=== PATIENT | female | born 1935 | race Caucasian/White ===

== ENCOUNTER 2020-06-03 10:15 | Inpatient (IN) | payer MEDICARE, OTHER ==
[~2020-06-03] VITALS: Ht 165.1 cm; Wt 95.8 kg
--- NOTE | 2020-06-03 10:21 | NUR ---
Patient's grandad is point of contact Geraldo Sawant [phone].
[2020-06-03] MEDS ORDERED: SODIUM CHLORIDE 0.9% 500ML 500 ML IV ONE (10:30)
[2020-06-03] MEDS ORDERED: DEXAMETHASONE SOD PHOS 10 MG/1 ML VIAL IV NR (10:30)
--- NOTE | 2020-06-03 10:55 | NUR ---
ARRIVED ON NRB 15 LPM SATS 100-99%. TACHYPNENIC IN MODERATE DISTRESS. AWAKE/ALERT. AAOX1 NAME ONLY, ANSWERS WRONG TO ALL OTHER QUESTIONS. CHANGED TO NC AT 6 LPM AND SATS 89-90%; MD JONES STATES ORDER FOR VAPO THERM AND NUÑEZ. RBVO. CALLED RESP FOR VAPO
[2020-06-03 11:10] LABS: BASOPHILS % 0.3 % (0.0-1.0); EOSINOPHILS % 0.2 % (0.0-6.0); HEMATOCRIT 36.3 % (34.2-44.1); HEMOGLOBIN 12.4 g/dL (12.0-16.0); LYMPHOCYTES # (AUTO) 1.3 (1.0-3.2); LYMPHOCYTES % 9.4 % (18.0-39.1); MEAN CORPUSCULAR HEMOGLOBIN 31.5 pg (28-32); MEAN CORPUSCULAR HGB CONC 34.2 g/dL (31-35); MEAN CORPUSCULAR VOLUME 92.1 fL (81-99); MONOCYTES # (AUTO) 2.4 (0.2-0.8); MONOCYTES % 17.6 % (4.4-11.3); NEUTROPHILS # (AUTO) 9.6 (2.1-6.9); NEUTROPHILS % 70.8 % (38.7-80.0); PLATELET COUNT 205 x10e3/uL (140-360); RED BLOOD COUNT 3.94 x10e6/uL (3.6-5.1); RED CELL DISTRIBUTION WIDTH 14.3 % (11.7-14.4)
[2020-06-03] MEDS ORDERED: ACETAMINOPHEN 325 MG TAB ONE (11:11)
--- NOTE | 2020-06-03 11:16 | Diagnostic Imaging Report ---
Examination: Single AP view of the chest. COMPARISON: None. INDICATION: Short of breath, hypoxia DISCUSSION: Lines/tubes: None. Lungs: Scattered groundglass and airspace opacities. Pleura: No pleural effusion or pneumothorax. Heart and mediastinum: The heart and the mediastinum are unremarkable. Bones and soft tissues: No acute bony abnormalities. IMPRESSION: 1. Scattered groundglass and airspace opacities may reflect pneumonia Signed by: Dr. Kamlesh Meza M.D. on 06/03/2020 11:12 AM
[2020-06-03 11:20] LABS: CLARITY,URINE SL CLOUDY (CLEAR); COLOR,URINE YELLOW (YELLOW); LEUKOCYTE ESTERASE ,URINE SMALL (NEGATIVE)
[2020-06-03 11:21] LABS: BILIRUBIN,URINE NEGATIVE (NEGATIVE); INR 1.05; KETONES,URINE TRACE (NEGATIVE); NITRITE,URINE POSITIVE (NEGATIVE); PROTEIN,URINE DIPSTICK 2+ (NEGATIVE); PROTHROMBIN TIME 14.4 seconds (11.9-14.5); URINE UROBILINOGEN 0.2 mg/dL (0.2 - 1)
[2020-06-03 11:22] LABS: PARTIAL THROMBOPLASTIN TIME 40.2 seconds (23.8-35.5)
[2020-06-03 11:28] LABS: WBC,URINE (MAN) 21-50 /HPF (0-5)
[2020-06-03 11:29] LABS: BACTERIA,URINE MANY /HPF; EPITHELIAL CELLS,URINE FEW /LPF; RBC,URINE 21-50 /HPF (0-5)
[2020-06-03 11:30] LABS: ALANINE AMINOTRANSFERASE 41 IU/L (0-55); ALBUMIN 2.3 g/dL (3.5-5.0); ALBUMIN/GLOBULIN RATIO 0.5 (0.8-2.0); ALKALINE PHOSPHATASE 80 IU/L (40-150); ANION GAP 12.2 mmol/L (8-16); BLOOD UREA NITROGEN 8 mg/dL (7-26); BUN/CREATININE RATIO 13 (6-25); CALCIUM 8.6 mg/dL (8.4-10.2); CARBON DIOXIDE 26 mmol/L (22-29); CHLORIDE 99 mmol/L (98-107); CREATINE KINASE 15 IU/L (29-168); CREATININE, SERUM 0.63 mg/dL (0.57-1.11); EST GLOMERULAR FILTRATION RATE > 60 ML/MIN (60-); GLUCOSE 121 mg/dL (74-118); POTASSIUM 4.2 mmol/L (3.5-5.1); SODIUM 133 mmol/L (136-145)
[2020-06-03] MEDS ORDERED: ACETAMINOPHEN 650 MG SUPP PR ONE (12:01)
[2020-06-03] MEDS: AZITHROMYCIN 500MG/NS 250 ML 250 ML IV SCH (12:01)
[2020-06-03] MEDS: CEFTRIAXONE SOD 1 GM/NS 50 ML 50 ML IV SCH (12:01)
[2020-06-03] MEDS ORDERED: ACETAMINOPHEN 650 MG SUPP PR NR (12:15)
[2020-06-03] MEDS ORDERED: IPRAT-ALBUT 0.5-3 ML (14:20)
[2020-06-03] MEDS ORDERED: ZOLPIDEM TARTRAT5 MG (14:20)
[2020-06-03] MEDS ORDERED: FUROSEMIDE20 MG (14:20)
[2020-06-03] MEDS ORDERED: ATORVASTATIN CA10 MG (14:20)
[2020-06-03] MEDS ORDERED: OXYBUTYNIN CHLO10 MG (14:20)
[2020-06-03] MEDS ORDERED: ALPRAZOLAM0.25 MG (14:20)
[2020-06-03] MEDS ORDERED: PANTOPRAZOLE SO40 MG (14:20)
[2020-06-03] MEDS ORDERED: LEVOTHYROXINE50 MCG (14:20)
[2020-06-03] MEDS ORDERED: PREDNISOLONE (14:20)
[2020-06-03] MEDS ORDERED: POTASSIUM CHLO20 ME1 (14:20)
[2020-06-03] MEDS ORDERED: GABAPENTIN600 MG (14:20)
[2020-06-03] MEDS ORDERED: PREGABALIN150 MG (14:20)
--- NOTE | 2020-06-03 15:00 | Emergency Department Note ---
History of Present Illnes History of Present Illness Chief Complaint: COVID PUI History of Present Illness This is a 85 year old female PT FROM [facility] SENT FOR SOB. SATS IN 70% RA PER EMS. PT AWAKE/ALERT. PT ARRIVED ON NRB @15 LPM SATS AT 90%. Historian: Patient Arrival Mode: Car Wood Coater Required: No Onset (how long ago): unknown Radiation: Reports non-radiation Severity: moderate Onset quality: gradual Progression: worsening Chronicity: new Context: Denies recent illness Relieving factors: none Exacerbating factors: none Past Medical/Family History Physician Review I have reviewed the patient's past medical and family history. Any updates have been documented here. Past Medical History Recent Fever: No Clinical Suspicion of Infectio: No New/Unexplained Change in Ment: No Past Medical History: Hypertension, A-Fib, Hypothyroidism, Anemia, Anxiety, GERD, Hyperlipedemia Other Medical History: DEMENTIA INSOMNIA MORBID OBESITY Social History Smoking Cessation: Never Smoker Counseling Performed: No Alcohol Use: None Any Illegal Drug Use: No Other Any Pre-Existing Lines (PICC,: No Review of Systems ROS Narrative Unable to obtain ROS: Unable to obtain due to, altered mental status (dementia) Review of Systems Constitutional: Reports no symptoms EENTM: Reports no symptoms Cardiovascular: Reports no symptoms Respiratory: Reports as per HPI Gastrointestinal: Reports no symptoms Genitourinary: Reports no symptoms Musculoskeletal: Reports no symptoms Integumentary: Reports no symptoms Neurological: Reports no symptoms Psychological: Reports no symptoms Endocrine: Reports no symptoms Hematological/Lymphatic: Reports no symptoms Physical Exam Related Data Allergies: Coded Allergies: No Known Allergies (Unverified , 06/03/20) Triage Vital Signs Vital Signs Date Time Temp Pulse Resp B/P (MAP) Pulse Ox O2 Delivery O2 Flow Rate FiO2 06/03/20 10:19 102.4 109 16 155/63 70 Room Air 06/03/20 10:22 15.0 Vital signs reviewed: Yes Physical Exam CONSTITUTIONAL Constitutional: Present ill appearing HENT HENT: Present normocephalic, Present atraumatic, Present oropharynx clear/moist, Present nose normal HENT L/R: Present left ext ear normal, Present right ext ear normal EYES Eyes: Reports PERRL, Reports conjunctivae normal NECK Neck: Present ROM normal PULMONARY Pulmonary: Present respiratory distress (tachypnea), Present other (decr bs's throughout) CARDIOVASCULAR Cardiovascular: Present regular rhythm, Present heart sounds normal, Present capillary refill normal, Present normal rate GASTROINTESTINAL Abdominal: Present soft, Present nontender, Present bowel sounds normal GENITOURINARY Genitourinary: Present exam deferred SKIN Skin: Present warm, Present dry MUSCULOSKELETAL Musculoskeletal: Present ROM normal NEUROLOGICAL Neurological: Present other (oriented to name only) PSYCHOLOGICAL Psychological: Present mood/affect normal Results Laboratory Result Diagram: 06/03/20 1040 06/03/20 1040 Laboratory Laboratory Tests Test 06/03/20 10:40 White Blood Count 13.50 x10e3/uL (4.8-10.8) Red Blood Count 3.94 x10e6/uL (3.6-5.1) Hemoglobin 12.4 g/dL (12.0-16.0) Hematocrit 36.3 % (34.2-44.1) Mean Corpuscular Volume 92.1 fL (81-99) Mean Corpuscular Hemoglobin 31.5 pg (28-32) Mean Corpuscular Hemoglobin Concent 34.2 g/dL (31-35) Red Cell Distribution Width 14.3 % (11.7-14.4) Platelet Count 205 x10e3/uL (140-360) Neutrophils (%) (Auto) 70.8 % (38.7-80.0) Lymphocytes (%) (Auto) 9.4 % (18.0-39.1) Monocytes (%) (Auto) 17.6 % (4.4-11.3) Eosinophils (%) (Auto) 0.2 % (0.0-6.0) Basophils (%) (Auto) 0.3 % (0.0-1.0) Neutrophils # (Auto) 9.6 (2.1-6.9) Lymphocytes # (Auto) 1.3 (1.0-3.2) Monocytes # (Auto) 2.4 (0.2-0.8) Eosinophils # (Auto) 0.0 (0.0-0.4) Basophils # (Auto) 0.0 (0.0-0.1) Absolute Immature Granulocyte (auto 0.23 x10e3/uL (0-0.1) Prothrombin Time 14.4 seconds (11.9-14.5) Prothromb Time International Ratio 1.05 Activated Partial Thromboplast Time 40.2 seconds (23.8-35.5) Urine Color Yellow (YELLOW) Urine Clarity Sl cloudy (CLEAR) Urine pH 5.5 (5 - 7) Urine Specific [place] >=1.030 (1.010-1.025) Urine Protein 2+ (NEGATIVE) Urine Glucose (UA) Negative (NEGATIVE) Urine Ketones Trace (NEGATIVE) Urine Blood Large (NEGATIVE) Urine Nitrite Positive (NEGATIVE) Urine Bilirubin Negative (NEGATIVE) Urine Urobilinogen 0.2 mg/dL (0.2 - 1) Urine Leukocyte Esterase Small (NEGATIVE) Urine RBC 21-50 /HPF (0-5) Urine WBC 21-50 /HPF (0-5) Urine Epithelial Cells Few /LPF (NONE) Urine Bacteria Many /HPF (NONE) Sodium Level 133 mmol/L (136-145) Potassium Level 4.2 mmol/L (3.5-5.1) Chloride Level 99 mmol/L (98-107) Carbon Dioxide Level 26 mmol/L (22-29) Anion Gap 12.2 mmol/L (8-16) Blood Urea Nitrogen 8 mg/dL (7-26) Creatinine 0.63 mg/dL (0.57-1.11) Estimat Glomerular Filtration Rate > 60 ML/MIN (60-) BUN/Creatinine Ratio 13 (6-25) Glucose Level 121 mg/dL (74-118) Lactic Acid Level 1.3 mmol/L (0.5-2.0) Calcium Level 8.6 mg/dL (8.4-10.2) Total Bilirubin 0.6 mg/dL (0.2-1.2) Aspartate Amino Transf (AST/SGOT) 43 IU/L (5-34) Alanine Aminotransferase (ALT/SGPT) 41 IU/L (0-55) Alkaline Phosphatase 80 IU/L (40-150) Creatine Kinase 15 IU/L (29-168) Creatine Kinase MB 0.50 ng/mL (0-5.0) Troponin I 0.039 ng/mL (0-0.300) B-Type Natriuretic Peptide 60.0 pg/mL (0-100) Total Protein 6.6 g/dL (6.5-8.1) Albumin 2.3 g/dL (3.5-5.0) Globulin 4.3 g/dL (2.3-3.5) Albumin/Globulin Ratio 0.5 (0.8-2.0) Lab results reviewed: Yes Imaging Imaging results reviewed: Yes Impressions Examination: Single AP view of the chest. COMPARISON: None. INDICATION: Short of breath, hypoxia DISCUSSION: Lines/tubes: None. Lungs: Scattered groundglass and airspace opacities. Pleura: No pleural effusion or pneumothorax. Heart and mediastinum: The heart and the mediastinum are unremarkable. Bones and soft tissues: No acute bony abnormalities. IMPRESSION: 1. Scattered groundglass and airspace opacities may reflect pneumonia Signed by: Dr. Kamlesh Meza M.D. on 06/03/2020 11:12 AM Procedures 12 Lead ECG Interpretation ECG Interpretation : ECG: ECG 1 Wood Coater: Interpreted by ED physician Date: Jun 03, 2020 Time: 10:35 Rhythm: sinus rhythm Ectopy: atrial premature contractions Rate: normal (97) QRS axis: left Conduction: incomplete RBBB Clinical Impression: abnormal ECG (non-specific st/tw changes) Critical Care Time Total Critical Care Time (min): 35 Critical care time exclusive o: separately billable procedures Critcal care necessary due to: respiratory failure Critcal care time spent by me: discussion w consultants, discussion w primary provider, evaluation patient response to tx, examination of patient, order/review radiographic studies, pulse oximetry, re-evaluation of patient condition Assessment & Plan Medical Decision Making MDM cbc, chem, cardiacs, ecg, cxr, pancx's, ua, covid swab - r/o pneumonia, COVID, stemi/nstemi, electrolyte abnl Reassessment Reassessment o2 sat on RA was 70, febrile - now on Vapotherm - admit. Given Rocephin/Azithro/Decadron Assessment & Plan Final Impression: (1) Pneumonia due to COVID-19 virus Depart Disposition: ADMITTED Last Vital Signs Date Time Temp Pulse Resp B/P (MAP) Pulse Ox O2 Delivery O2 Flow Rate FiO2 06/03/20 13:51 98.4 88 32 136/67 97 06/03/20 11:19 30.0 06/03/20 10:52 Room Air Home Meds Reported Medications Gabapentin (GABAPENTIN) 600 Mg Tablet 06/03/20 Oxybutynin Chloride (OXYBUTYNIN CHLORIDE ER) 10 Mg Tab.er.24 06/03/20 Potassium Chloride (POTASSIUM CHLORIDE) 20 Meq Tab.er.prt 06/03/20 Atorvastatin Calcium (ATORVASTATIN CALCIUM) 10 Mg Tablet 06/03/20 Levothyroxine Sodium (LEVOTHYROXINE SODIUM) 50 Mcg Tablet 06/03/20 [Prednisolone] No Conflict Check 06/03/20 Alprazolam (ALPRAZOLAM) 0.25 Mg Tablet 06/03/20 Pantoprazole Sodium* (PROTONIX) 40 Mg Tablet. 06/03/20 Ipratropium/Albuterol Sulfate (IPRAT-ALBUT 0.5-3(2.5) MG/3 ML) 3 Ml Ampul.neb 06/03/20 Furosemide (FUROSEMIDE) 20 Mg Tablet 06/03/20 Pregabalin (Pregabalin) 150 Mg Capsule 06/03/20 Zolpidem Tartrate (ZOLPIDEM TARTRATE) 5 Mg Tablet 06/03/20 Medications in the ED Sodium Chloride 500 ml @ 0 mls/hr Q0M ONCE IV Last administered on 06/03/20at 12:01; Admin Dose 500 MLS/HR; Start 06/03/20 at 10:30; Stop 06/03/20 at 10:33; Status DC Ceftriaxone Sodium 50 ml @ 100 mls/hr Q24H IV Last administered on 06/03/20at 12:01; Admin Dose 100 MLS/HR; Start 06/03/20 at 10:30; Stop 06/10/20 at 10:29 Azithromycin 250 ml @ 200 mls/hr DAILY IV Last administered on 06/03/20at 12:01; Admin Dose 200 MLS/HR; Start 06/03/20 at 10:30; Stop 06/10/20 at 10:29 Dexamethasone Sodium Phosphate 6 mg ONCE IV ; Start 06/03/20 at 10:30; Stop 06/03/20 at 11:59; Status DC Acetaminophen 975 mg STK-MED ONCE .ROUTE ; Start 06/03/20 at 11:11; Stop 06/03/20 at 11:05; Status DC Acetaminophen 650 mg STK-MED ONCE KS ; Start 06/03/20 at 12:01; Stop 06/03/20 at 11:55; Status DC Acetaminophen 650 mg ONCE KS ; Start 06/03/20 at 12:15; Stop 06/03/20 at 13:59; Status DC KATEY JONES MD Jun 03, 2020 15:00
[2020-06-03] MEDS ORDERED: ALPRAZOLAM 0.25 MG TAB PO PRN (18:00)
[2020-06-03] MEDS ORDERED: METOPROLOL TARTRATE INJ 1 MG/ML VIAL IV PRN (18:00)
[2020-06-03] MEDS ORDERED: POLYETHYLENE GLYCOL 3350 17 GM PACK PO PRN (18:00)
[2020-06-03] MEDS ORDERED: ACETAMINOPHEN 325 MG TAB PO PRN (18:00)
[2020-06-03] MEDS ORDERED: ALBUTEROL/IPRATROPIUM 3 ML NEB NEB SCH ×2 (18:00→19:00)
[2020-06-03] MEDS ORDERED: ONDANSETRON HCL INJ 2MG/ML 2ML 2 MG/ML VIAL IV PRN (18:00)
[2020-06-03 18:08] VITALS: BP 147/77
[2020-06-03 18:21] VITALS: BP 147/74
[2020-06-03 18:26] VITALS: BP 147/74
--- NOTE | 2020-06-03 19:06 | NUR ---
RECEIVED REPORT PATIENT IN ROOM DURING SHIFT CHANGE, RESTING COMFORTABLY NO DISTRESS NOTED, SKIN WARM DRY, DROPLET PRECAUTIONS IN PLACE, BED ALARM IN PLACE, Q2T, BED IN LOWEST POSITION, WILL CONTINUE TO MONITOR
[2020-06-03 20:00] VITALS: BP 137/78
--- NOTE | 2020-06-03 20:15 | NUR ---
MD smith talked with the son about DNR status of patient, update by family on pt history
--- NOTE | 2020-06-03 20:56 | Consultation ---
DATE OF CONSULTATION: Pulmonary Critical Care Consultation CHIEF COMPLAINT: Cough, fever, and confusion. HISTORY OF PRESENT ILLNESS: The patient is an 85-year-old woman. She has been staying at the [facility] for about 8 or 9 months. She has some intermittent confusion according to the family. She has some concern new onset of congestion and dyspnea. She has had some fevers. Her chest x-ray in the emergency department showed bilateral infiltrates and her COVID test was positive. PAST MEDICAL HISTORY: 1. Hypothyroidism. 2. Organic brain syndrome. 3. Chronic pain requiring gabapentin. 4. Gastroesophageal reflux. ALLERGIES: THERE ARE NO KNOWN DRUG ALLERGIES. PAST SURGICAL HISTORY: Noncontributory. FAMILY HISTORY: Unobtainable. SOCIAL HISTORY: The patient stays in a nursing facility. She is not an active smoker or drinker. REVIEW OF SYSTEMS: The patient had some fevers at the nursing facility over the past several days. She has had increased cough and increased dyspnea. She is not complaining of any abdominal pain. She has no nausea or vomiting. She has no leg edema. PHYSICAL EXAMINATION: VITAL SIGNS: Stable. The blood pressure is 147/74 and saturation is 95% on a high flow oxygen that is set at 15 L. Her pulse is 90. HEENT: Shows no facial swelling or erythema. CARDIAC: Reveals regular rate and rhythm with normal S1 and S2. LUNGS: Auscultation of lungs reveals rhonchorous breath sounds bilaterally. There is no wheezing. ABDOMEN: Soft and nontender. There is no rebound or guarding. EXTREMITIES: Shows no leg edema or calf tenderness. There is no cyanosis or clubbing. SKIN: Shows no rashes. NEUROLOGICAL: Shows confusion. LABORATORY DATA: White blood cell count is 13.5 and the hemoglobin is 12.4. The platelet count is 205. The BUN to creatinine ratio is 8 to 0.63 and the sodium is 133. Albumin is 2.3. RADIOGRAPHIC DATA: Chest x-ray shows ground-glass opacities. IMPRESSION: 1. Viral pneumonia and COVID-19 infection. 2. Organic brain syndrome. 3. Gastroesophageal reflux. PLAN: 1. Zithromax and Rocephin. 2. Dexamethasone. 3. Lovenox. 4. Continue prior home medications. 5. Oxygen. 6. The patient apparently had a DNR in place at the detention and has a DNR band on the wrist, but the family is uncertain as to where it came from. They feel she is probably not DNR. MD SAHARA Cross/SEN /[id number]
[2020-06-03] MEDS ORDERED: ZOLPIDEM TARTRATE 5 MG TAB PO PRN (21:00)
[2020-06-03] MEDS ORDERED: DEXAMETHASONE SOD PHOS INJ 4 MG/ML VIAL IV SCH (21:00)
[2020-06-03] MEDS: ENOXAPARIN 30 MG/0.3 ML SYR SC SCH (21:13)
[2020-06-04] VITALS (12 sets, daily range): BP systolic 128–151; BP diastolic 62–81
[2020-06-04] MEDS: ALBUTEROL SULFATE HFA 8GM INHALATION AEROSOL INH SCH ×6 (04:00→23:11)
[2020-06-04] MEDS: DEXAMETHASONE SOD PHOS INJ 4 MG/ML VIAL IV SCH (05:39)
[2020-06-04] MEDS: LEVOTHYROXINE SODIUM 50 MCG TAB PO SCH (05:39)
[2020-06-04 06:37] LABS: CREATINE KINASE MB 1.2 ng/mL (0-5.0)
[2020-06-04 06:56] LABS: BASOPHILS % 0.1 % (0.0-1.0); HEMATOCRIT 36.4 % (34.2-44.1); HEMOGLOBIN 12.3 g/dL (12.0-16.0); LYMPHOCYTES # (AUTO) 0.9 (1.0-3.2); LYMPHOCYTES % 6.9 % (18.0-39.1); MEAN CORPUSCULAR HEMOGLOBIN 29.7 pg (28-32); MEAN CORPUSCULAR HGB CONC 33.8 g/dL (31-35); MEAN CORPUSCULAR VOLUME 87.9 fL (81-99); MONOCYTES # (AUTO) 0.9 (0.2-0.8); MONOCYTES % 6.6 % (4.4-11.3); NEUTROPHILS # (AUTO) 11.4 (2.1-6.9); NEUTROPHILS % 85.1 % (38.7-80.0); PLATELET COUNT 237 x10e3/uL (140-360); RED BLOOD COUNT 4.14 x10e6/uL (3.6-5.1)
[2020-06-04 06:57] LABS: ALANINE AMINOTRANSFERASE 38 IU/L (0-55); ALBUMIN 2.1 g/dL (3.5-5.0); ALBUMIN/GLOBULIN RATIO 0.5 (0.8-2.0); ALKALINE PHOSPHATASE 74 IU/L (40-150); ANION GAP 11.7 mmol/L (8-16); BLOOD UREA NITROGEN 12 mg/dL (7-26); BUN/CREATININE RATIO 21 (6-25); CALCIUM 8.7 mg/dL (8.4-10.2); CARBON DIOXIDE 25 mmol/L (22-29); CHLORIDE 102 mmol/L (98-107); CREATININE, SERUM 0.56 mg/dL (0.57-1.11); EST GLOMERULAR FILTRATION RATE > 60 ML/MIN (60-); GLUCOSE 139 mg/dL (74-118); POTASSIUM 3.7 mmol/L (3.5-5.1); SODIUM 135 mmol/L (136-145)
[2020-06-04 07:18] LABS: CHOL/HDL RATIO 4.6 (3.0-3.6); MAGNESIUM 2.3 MG/DL (1.3-2.1)
[2020-06-04 07:26] LABS: THYROID STIMULATING HORMONE 1.448 uIU/mL (0.350-4.940)
--- NOTE | 2020-06-04 07:30 | NUR ---
BSSR GIVEN TO CATALINA LEWIS PATIENT AWAKE ALERT ORIENTED x 1-2 AT TIMES, HX OF DEMENTIA, FAMILY CONTACT INFORMATION GIVEN TO CATALINA LEWIS, PATIENT REMAINS ON TELEMETRY, DROPLET PRECAUTION & OXYGEN SUPPORT VIA NASAL CANNULA HIGH FLOW 10 LITERS AT THIS TIME, NO DISTRESS, RESPIRATIONS EVEN AND UNLABORED, SKIN WARM DRY, BEDBOUND Q2T, CALL LIGHT WITHIN REACH, BED ALARM ON FOR SAFETY
[2020-06-04] MEDS: ZINC SULFATE 220 MG CAP PO SCH ×2 (09:00→17:21)
[2020-06-04] MEDS: FAMOTIDINE 20 MG/2 ML VIAL IV SCH ×2 (09:00→17:21)
[2020-06-04] MEDS: CHOLECALCIFEROL 400 UNIT TAB PO SCH (09:01)
[2020-06-04] MEDS: ASCORBIC ACID 500 MG TAB PO SCH ×2 (09:01→17:21)
[2020-06-04] MEDS: ENOXAPARIN 30 MG/0.3 ML SYR SC SCH ×2 (09:01→23:10)
[2020-06-04] MEDS: OXYBUTYNIN CHLORIDE 5 MG TAB PO SCH (09:01)
[2020-06-04] MEDS: DOCUSATE SODIUM 100 MG CAP PO SCH ×2 (09:01→17:21)
[2020-06-04] MEDS: ATORVASTATIN 10 MG TAB PO SCH (09:01)
[2020-06-04] MEDS: AZITHROMYCIN 500MG/NS 250 ML 250 ML IV SCH (09:01)
[2020-06-04] MEDS: CEFTRIAXONE SOD 1 GM/NS 50 ML 50 ML IV SCH (10:09)
[2020-06-04 13:47] LABS: CREATINE KINASE MB 1.6 ng/mL (0-5.0)
--- NOTE | 2020-06-04 15:25 | NUR ---
Nutrition Screen Note RD Recommendation for Physician: -Recommend modifying diet to regular diet -If PO intake remains <50% of meals, recommend to offer Ensure Compact Plan of Care: RD following, monitoring for tolerance and adequacy Nutrition reason for involvement: Nutrition Risk Trigger (MST 2) Primary Diagnose(s): pneumonia due to COVID-19 virus PMH: hypothyroid, organic brain syndrome, chronic pain, gastroesophageal reflux Ht: 65 in Wt: 226 lb BMI: 37.6 kg/m2 IBW:[address] Assessment: (06/04/20) Chart reviewed. Labs and meds reviewed. Pt is an 85 year old female admitted with pneumonia due to COVID-19 virus. Unable to enter room due to isolation precautions. Attempted to call pt over the phone, but she did not answer. It is recorded that pt has intermittent confusion according to family. 25% breakfast and lunch intake recorded today. There are no previous weights in chart and nutrition history is limited. If PO intake remains <50% of meals, recommend to offer Ensure compact. Will continue to monitor. Current Diet: cardiac Malnutrition Evaluation (06/04/20) Unable to assess. Will re-evaluate at follow-up as appropriate. Diet Education Needs Assessment: Diet education not indicated. Nutrition Care Level: low Signed: Gabrielle Mejia, RD, LD
--- NOTE | 2020-06-04 17:15 | Progress Note ---
DATE: SUBJECTIVE: The patient is still requiring large amounts of oxygen. She also has some confusion. PHYSICAL EXAMINATION: VITAL SIGNS: Blood pressure is 140/78 and saturation is 94% on 15 L. Pulse is 72 and respiratory rate is 22. HEENT: Shows no facial swelling or erythema. CARDIAC: Reveals regular rate and rhythm with normal S1 and S2. LUNGS: Auscultation of lungs reveals clear breath sounds bilaterally. There is no wheezing. ABDOMEN: Soft and nontender. There is no rebound or guarding. EXTREMITIES: Shows no leg edema or calf tenderness. There is no cyanosis or clubbing. SKIN: Shows no rashes. LABORATORY DATA: CBC is within normal limits. BUN to creatinine ratio is normal. Other electrolytes are within normal limits. IMPRESSION: 1. Viral pneumonia and COVID-19 infection. 2. Organic brain syndrome. 3. Gastroesophageal reflux. PLAN: 1. Continue current antibiotics. 2. Continue dexamethasone. 3. Continue Lovenox. 4. Continue oxygen. Anthony Pabon MD [facility]/MODL /[id number]
--- NOTE | 2020-06-04 20:05 | Consultation ---
DATE OF CONSULTATION: HISTORY OF PRESENT ILLNESS: There is COVID-19 pneumonia in this patient who is an 85-year-old female [facility] about 8 to 9 months at alf, comes in with cough, fever, altered mental status. She is alert but not a good source of information. PAST MEDICAL HISTORY: History of hypothyroidism, organic brain syndrome, dementia, chronic pain on gabapentin, and gastroesophageal reflux disease. ALLERGIES: NKA. SOCIAL HISTORY: There is no smoking, drug abuse or alcohol abuse, from alf. FAMILY HISTORY: Could not be obtained. REVIEW OF SYSTEMS: Could not be obtained. The patient according to medical team, she has been running fever. LABORATORY DATA: Her white count when she first came 13.39, hemoglobin 12. Her COVID-19 was positive. Sodium 135, potassium 3.7 creatinine 0.56. PHYSICAL EXAMINATION: GENERAL: She is currently alert, oriented, does not seem to be in acute distress. She is . VITAL SIGNS: Stable, afebrile. The patient is currently on 10 L. HEENT: She is not icteric. NECK: Supple. CHEST: Clear. HEART: S1 and S2. ABDOMEN: Soft. Bowel sounds present. EXTREMITIES: No edema. SKIN: No rash. IMPRESSION: COVID-19. On admission, Rocephin 1 g daily for 5 days, azithromycin 500 mg daily for 3 days, Lovenox 0.5 mg/kg q.12 hours. mg daily for 10 days. Oxygen as needed. Code status needs to be discussed. Prognosis is guarded. The patient is not a candidate for remdesivir. Discussed with the medical team. MD RENO Natarajan/MODL /[id number]
[2020-06-05] VITALS (12 sets, daily range): BP systolic 131–161; BP diastolic 74–93
[2020-06-05] MEDS: ALBUTEROL SULFATE HFA 8GM INHALATION AEROSOL INH SCH ×6 (03:00→23:50)
--- NOTE | 2020-06-05 04:03 | NUR ---
PATIENTS NONCOMPLIANT WITH OXYGEN THERAPY CONTINUES TO TAKE NASAL CANNULA OFF AND NON-REBREATHER, PLACED BACK ON HER MULTIPLE TIMES DRIN THE NIGHT, OXYGEN SAT CURRENTLY AT 94% ON HIGH FLOW 15 LITERS, AND NON REBREATHER 10 LITERS,ENCOURAGED TO LEAVE IN PLACE
--- NOTE | 2020-06-05 06:00 | NUR ---
LABS ORDERED PUT IN THIS AM AT 0520, ATTEMPTED BLOOD DRAW x 2 WITH TWO NURSES, UNABLE TO OBTAIN BLOOD DRAW, LAB CALLED TO TO OBTAIN AM BLOOD DRAW
[2020-06-05 06:28] LABS: BASOPHILS % 0.2 % (0.0-1.0); HEMATOCRIT 35.8 % (34.2-44.1); HEMOGLOBIN 12.3 g/dL (12.0-16.0); LYMPHOCYTES # (AUTO) 0.9 (1.0-3.2); LYMPHOCYTES % 4.8 % (18.0-39.1); MEAN CORPUSCULAR HEMOGLOBIN 29.6 pg (28-32); MEAN CORPUSCULAR HGB CONC 34.4 g/dL (31-35); MEAN CORPUSCULAR VOLUME 86.1 fL (81-99); MONOCYTES # (AUTO) 1.4 (0.2-0.8); MONOCYTES % 7.7 % (4.4-11.3); NEUTROPHILS # (AUTO) 15.4 (2.1-6.9); NEUTROPHILS % 85.6 % (38.7-80.0); PLATELET COUNT 321 x10e3/uL (140-360); RED BLOOD COUNT 4.16 x10e6/uL (3.6-5.1); RED CELL DISTRIBUTION WIDTH 14.1 % (11.7-14.4)
[2020-06-05] MEDS: DEXAMETHASONE SOD PHOS INJ 4 MG/ML VIAL IV SCH (06:42)
[2020-06-05] MEDS: LEVOTHYROXINE SODIUM 50 MCG TAB PO SCH (06:42)
--- NOTE | 2020-06-05 06:50 | NUR ---
REPORT GIVEN TO ERLIN LEWIS, PT REMAINS ON HIGH FLOW AND NON-REBREATHER FOR OXYGEN SUPPORT, AM LAB RESULTS PENDING, WILL CONTINUE CARE GIVEN FAMILY MEMBER NAME AND CONTACT INFORMATION FOR MEDICAL POA MR MORSE
[2020-06-05 06:51] LABS: BLOOD UREA NITROGEN 15 mg/dL (7-26); BUN/CREATININE RATIO 24 (6-25); CALCIUM 8.9 mg/dL (8.4-10.2); CARBON DIOXIDE 24 mmol/L (22-29); CHLORIDE 105 mmol/L (98-107); CREATININE, SERUM 0.62 mg/dL (0.57-1.11); EST GLOMERULAR FILTRATION RATE > 60 ML/MIN (60-); GLUCOSE 141 mg/dL (74-118); MAGNESIUM 2.5 MG/DL (1.3-2.1); PHOSPHORUS 1.8 MG/DL (2.3-4.7); SODIUM 139 mmol/L (136-145)
[2020-06-05] MEDS: OXYBUTYNIN CHLORIDE 5 MG TAB PO SCH (09:43)
[2020-06-05] MEDS: ZINC SULFATE 220 MG CAP PO SCH ×2 (09:43→17:18)
[2020-06-05] MEDS: AZITHROMYCIN 500MG/NS 250 ML 250 ML IV SCH (09:43)
[2020-06-05] MEDS: ATORVASTATIN 10 MG TAB PO SCH (09:43)
[2020-06-05] MEDS: FAMOTIDINE 20 MG/2 ML VIAL IV SCH ×2 (09:43→17:18)
[2020-06-05] MEDS: ENOXAPARIN 30 MG/0.3 ML SYR SC SCH ×2 (09:43→21:13)
[2020-06-05] MEDS: CHOLECALCIFEROL 400 UNIT TAB PO SCH (09:43)
[2020-06-05] MEDS: DOCUSATE SODIUM 100 MG CAP PO SCH ×2 (09:43→17:18)
[2020-06-05] MEDS: ASCORBIC ACID 500 MG TAB PO SCH ×2 (09:43→17:18)
[2020-06-05] MEDS: CEFTRIAXONE SOD 1 GM/NS 50 ML 50 ML IV SCH (11:34)
--- NOTE | 2020-06-05 18:25 | Progress Note ---
DATE: SUBJECTIVE: Ms. Gomez remains in the medical floor. No specific complaints. PHYSICAL EXAMINATION: GENERAL: Currently alert, following simple command. The patient is confused. VITAL: Stable, afebrile. HEENT: She is not icteric. NECK: Supple. CHEST: Clear. HEART: S1 and S2. ABDOMEN: Soft. LABORATORY DATA: Her urine was gram-negative bacilli. Her blood was coagulase intact. MEDICATIONS: She is currently on Rocephin, Lovenox, Lipitor, vitamin D, and azithromycin. IMPRESSION: 1. Urinary tract infection, coagulase-negative Staph bacteremia contamination. 2. COVID-19, present on admission. 3. Dementia. 4. Continue azithromycin for 3 days. 5. Rocephin for time being. Await culture sensitivity. Recheck of blood cultures. Continue low dose of Lovenox and 10 days of dexamethasone and orders to follow. MD RENO Natarajan/SEN /[id number]
--- NOTE | 2020-06-05 18:50 | Progress Note ---
DATE: Pulmonary Critical Care Progress Note SUBJECTIVE: The patient is afebrile. She still is confused. PHYSICAL EXAMINATION: VITAL SIGNS: Blood pressure is 131/74 and pulse is 104. Respiratory rate is 30. Saturation is 95%. HEENT: Shows no facial swelling or erythema. CARDIAC: Reveals regular rate and rhythm with normal S1 and S2. LUNGS: Auscultation of lungs reveals rhonchorous breath sounds bilaterally. There is no wheezing. ABDOMEN: Soft and nontender. There is no rebound or guarding. EXTREMITIES: Shows no leg edema or calf tenderness. There is no cyanosis or clubbing. SKIN: Shows no rashes. NEUROLOGICAL: Shows no focal abnormalities. LABORATORY DATA: White blood cell count is 17.9, hemoglobin is 12.3, and the platelet count is 321. BUN to creatinine ratio is normal. The potassium is 3. Phosphorus is 1.8. IMPRESSION: 1. Viral pneumonia and COVID-19 infection. 2. Gastroesophageal reflux. 3. Organic brain syndrome. 4. Hypophosphatemia. PLAN: 1. Complete current antibiotics. 2. Continue dexamethasone. 3. Continue Lovenox. 4. Continue oxygen. 5. Replace phosphorus. Anthony Pabon MD [facility]/MODL /[id number]
--- NOTE | 2020-06-05 20:00 | NUR ---
Resumed care of patient. Patient awake and resting in bed, high flow nasal cannula and NRB mask in place at 15L. Vital signs stable, no s/s of distress at this time. Rose catheter patent and draining to gravity. Ileostomy stoma beefy red, draining. Bed locked and in lowest position, side rails up x3, alarm on, call light placed within reach. All safety measures in place. Will continue to monitor.
[2020-06-06] VITALS (8 sets, daily range): BP systolic 114–156; BP diastolic 71–85
[2020-06-06] MEDS: ALBUTEROL SULFATE HFA 8GM INHALATION AEROSOL INH SCH ×6 (02:52→22:55)
[2020-06-06] MEDS: DEXAMETHASONE SOD PHOS INJ 4 MG/ML VIAL IV SCH (05:20)
[2020-06-06] MEDS: LEVOTHYROXINE SODIUM 50 MCG TAB PO SCH (05:20)
[2020-06-06 05:25] LABS: BASOPHILS % 0.2 % (0.0-1.0); HEMATOCRIT 37.3 % (34.2-44.1); HEMOGLOBIN 12.8 g/dL (12.0-16.0); LYMPHOCYTES # (AUTO) 1.1 (1.0-3.2); LYMPHOCYTES % 5.7 % (18.0-39.1); MEAN CORPUSCULAR HEMOGLOBIN 30.1 pg (28-32); MEAN CORPUSCULAR HGB CONC 34.3 g/dL (31-35); MEAN CORPUSCULAR VOLUME 87.8 fL (81-99); MONOCYTES # (AUTO) 2.8 (0.2-0.8); MONOCYTES % 14.9 % (4.4-11.3); NEUTROPHILS # (AUTO) 14.4 (2.1-6.9); NEUTROPHILS % 77.1 % (38.7-80.0); PLATELET COUNT 347 x10e3/uL (140-360); RED BLOOD COUNT 4.25 x10e6/uL (3.6-5.1); RED CELL DISTRIBUTION WIDTH 14.4 % (11.7-14.4)
[2020-06-06 05:54] LABS: ALANINE AMINOTRANSFERASE 37 IU/L (0-55); ALBUMIN 2.5 g/dL (3.5-5.0); ALBUMIN/GLOBULIN RATIO 0.6 (0.8-2.0); ALKALINE PHOSPHATASE 79 IU/L (40-150); ANION GAP 12.7 mmol/L (8-16); BLOOD UREA NITROGEN 15 mg/dL (7-26); BUN/CREATININE RATIO 24 (6-25); CALCIUM 8.9 mg/dL (8.4-10.2); CARBON DIOXIDE 25 mmol/L (22-29); CHLORIDE 106 mmol/L (98-107); CREATININE, SERUM 0.63 mg/dL (0.57-1.11); EST GLOMERULAR FILTRATION RATE > 60 ML/MIN (60-); GLUCOSE 123 mg/dL (74-118); SODIUM 141 mmol/L (136-145)
[2020-06-06 06:06] LABS: POTASSIUM 2.7 mmol/L (3.5-5.1)
--- NOTE | 2020-06-06 06:12 | NUR ---
Spoke to Constantino GONSALES regarding potassium level of 2.7. Received orders to give 40 mEq potassium PO now, and then again in 2 hours.
[2020-06-06] MEDS ORDERED: POTASSIUM CHLORIDE 20 MEQ TAB CR PO ONE ×2 (06:40→08:00)
[2020-06-06 08:05] LABS: LYMPHOCYTES % (MANUAL) 5 % (19-48); MONOCYTES % (MANUAL) 13 % (3.4-9.0); NEUTROPHILS % (MANUAL) 82 % (40-74); PLATELET ESTIMATE ADEQUATE; PLATELET MORPHOLOGY COMMENT NORMAL; RBC MORPHOLOGY COMMENT NORMAL
[2020-06-06] MEDS: FAMOTIDINE 20 MG/2 ML VIAL IV SCH ×2 (08:43→17:00)
[2020-06-06] MEDS: ZINC SULFATE 220 MG CAP PO SCH ×2 (08:44→17:04)
[2020-06-06] MEDS: DOCUSATE SODIUM 100 MG CAP PO SCH ×2 (08:44→17:04)
[2020-06-06] MEDS: AZITHROMYCIN 500MG/NS 250 ML 250 ML IV SCH (08:44)
[2020-06-06] MEDS: ASCORBIC ACID 500 MG TAB PO SCH ×2 (08:44→17:04)
[2020-06-06] MEDS: CHOLECALCIFEROL 400 UNIT TAB PO SCH (08:44)
[2020-06-06] MEDS: OXYBUTYNIN CHLORIDE 5 MG TAB PO SCH (08:44)
[2020-06-06] MEDS: ENOXAPARIN 30 MG/0.3 ML SYR SC SCH ×2 (09:21→20:37)
[2020-06-06] MEDS ORDERED: POTASSIUM CHLORIDE 20 MEQ TAB CR PO SCH (09:45)
--- NOTE | 2020-06-06 11:12 | Diagnostic Imaging Report ---
EXAMINATION: CHEST SINGLE (PORTABLE) INDICATION: Pneumonia COMPARISON: Chest radiograph 06/03/2020 FINDINGS: LINES/TUBES:EKG leads overlie the chest. LUNGS:The lungs are moderately inflated. Interval increase in bilateral multifocal airspace opacities. PLEURA:No pleural effusion or pneumothorax. MEDIASTINUM:The cardiomediastinal silhouette appears unchanged in size and shape. BONES/SOFT TISSUES:No acute osseous injury. ABDOMEN:No free air under the diaphragm. IMPRESSION: Interval increase in multifocal bilateral airspace opacities consistent with known pneumonia. Signed by: Jeison Trent MD on 06/06/2020 11:09 AM
[2020-06-06] MEDS ORDERED: MEROPENEM 500MG/ NS 50ML 500 MG in MEROPENEM 500MG/ NS 50ML 50 ML IV SCH (14:00)
[2020-06-06] MEDS: MEROPENEM 500MG/ NS 50ML 50 ML IV SCH ×2 (14:00→21:26)
--- NOTE | 2020-06-06 14:49 | NUR ---
IV ACCESS X2 LOST THIS MD MARIIA ORDERED PICC. PHONE CONSENT OBTAINED BY GR.FLETCHER AND AMADO CALHOUN. RADIOLOGY NOTIFIED OF CONSENT
--- NOTE | 2020-06-06 15:12 | NUR ---
PATIENT KEEPS REMOVING ALL OF HER O2 (PER NC AND NRB MASK). STAFF MEMBERS GO TO HER ROOM OFTEN TO CHECK ON HER BUT SHE KEEPS TAKING OFF HER MASK. LAST TIME I WENT IN I FOUND HER AGAIN WITHOUT HER MASK ON NC. HER SATS AT THAT TIME WERE 75% . REMINDED HER AGAIN TO NOT TAKE OFF HER MASK. GAVE HER WATER AND REPOSITIONED HER. EMPTIED HER COLOSTOMY BAG. REPOSITIONED HER PULSE OX FOR MORE CMFORT.
--- NOTE | 2020-06-06 17:29 | Progress Note ---
DATE: SUBJECTIVE: The patient is afebrile. The patient still has some confusion. PHYSICAL EXAMINATION: VITAL SIGNS: Stable. She is on 15 L. Saturation is 90%. CARDIAC: Regular rate and rhythm with normal S1, S2. LUNGS: Auscultation of lungs reveals crackles at the bases. There is no wheezing. ABDOMEN: Soft, nontender. There is no rebound or guarding. EXTREMITIES: No leg edema or calf tenderness. There is no cyanosis or clubbing. SKIN: No rashes. NEUROLOGICAL: No focal abnormalities. LABORATORY DATA: White blood cell count is 18.7, hemoglobin is 12.8, and platelet count is 347. The potassium is 2.7. Albumin is 2.5. RADIOGRAPHIC DATA: Chest x-ray shows multifocal airspace disease. IMPRESSION: 1. Acute respiratory failure. 2. Viral pneumonia and coronavirus disease-19 infection. 3. Hypokalemia. 4. Organic brain syndrome. 5. Gastroesophageal reflux. PLAN: 1. Continue current antibiotics. 2. Complete dexamethasone. 3. Continue Lovenox. 4. Continue oxygen. Anthony Pabon MD [facility]/MODL /[id number]
--- NOTE | 2020-06-06 18:20 | NUR ---
PATIENT CURRENTLY GETTING A PICC LINE PLACED SO UNABLE TO DO REST TX AT THIS TIME
--- NOTE | 2020-06-06 19:35 | NUR ---
Resumed care of patient. Patient awake and resting in bed, high flow NC and NRB mask off. Reapplied both at 15L and instructed patient not to remove. Patient currently getting CXR to verify PICC line placement. Family called, provided updates on patient status. No s/s of distress at this time. Bed locked and in lowest position, side rails up x3, alarm on, call light placed within reach. All safety measures in place. Will continue to monitor.
--- NOTE | 2020-06-06 20:03 | Diagnostic Imaging Report ---
EXAMINATION: CHEST XRAY LINE PLACEMENT INDICATION: Status post right PICC placement. COMPARISON: None FINDINGS: TUBES and LINES: There has been interval placement of a right PICC which terminates at the proximal aspect of superior vena cava. LUNGS: Low lung volumes with no significant interval change in diffuse patchy airspace opacities. PLEURA: No pleural effusion or pneumothorax. HEART AND MEDIASTINUM: No interval changes. BONES AND SOFT TISSUES: No acute osseous lesion. Soft tissues are unremarkable. UPPER ABDOMEN: No free air under the diaphragm. IMPRESSION: 1. Interval placement of right PICC which terminates at the proximal aspect of the superior vena cava. 2. No interval change in radiographic appearance of the lungs. Signed by: Darlene Daugherty MD on 06/06/2020 7:59 PM
[2020-06-06] MEDS: ATORVASTATIN 10 MG TAB PO SCH (20:37)
--- NOTE | 2020-06-06 21:20 | NUR ---
PICC line okay to use per IR nurse and radiology.
[2020-06-06] MEDS ORDERED: SODIUM CHLORIDE 0.9% 250ML 250 ML ONE (22:37)
[2020-06-07] VITALS (11 sets, daily range): BP systolic 128–159; BP diastolic 40–109
--- NOTE | 2020-06-07 03:34 | NUR ---
Patient heard shouting for help, found in bed with NC and NRB removed, O2 in 60s. Reapplied both at 15L. O2 up to 93%. Patient instructed not to remove NC and NRB. Verbalized understanding.
[2020-06-07] MEDS: ALBUTEROL SULFATE HFA 8GM INHALATION AEROSOL INH SCH ×6 (03:36→23:17)
[2020-06-07] MEDS: DEXAMETHASONE SOD PHOS INJ 4 MG/ML VIAL IV SCH (05:41)
[2020-06-07] MEDS: LEVOTHYROXINE SODIUM 50 MCG TAB PO SCH (05:41)
[2020-06-07] MEDS: MEROPENEM 500MG/ NS 50ML 50 ML IV SCH ×3 (05:41→21:50)
[2020-06-07 06:00] LABS: BASOPHILS # (AUTO) 0.1 (0.0-0.1); BASOPHILS % 0.3 % (0.0-1.0); HEMATOCRIT 38.8 % (34.2-44.1); HEMOGLOBIN 13.1 g/dL (12.0-16.0); LYMPHOCYTES # (AUTO) 1.7 (1.0-3.2); LYMPHOCYTES % 6.7 % (18.0-39.1); MEAN CORPUSCULAR HEMOGLOBIN 29.9 pg (28-32); MEAN CORPUSCULAR HGB CONC 33.8 g/dL (31-35); MEAN CORPUSCULAR VOLUME 88.6 fL (81-99); MONOCYTES % 16.1 % (4.4-11.3); NEUTROPHILS # (AUTO) 18.2 (2.1-6.9); NEUTROPHILS % 73.3 % (38.7-80.0); PLATELET COUNT 459 x10e3/uL (140-360); RED BLOOD COUNT 4.38 x10e6/uL (3.6-5.1); RED CELL DISTRIBUTION WIDTH 14.6 % (11.7-14.4)
[2020-06-07 06:41] LABS: ALANINE AMINOTRANSFERASE 28 IU/L (0-55); ALBUMIN 2.5 g/dL (3.5-5.0); ALBUMIN/GLOBULIN RATIO 0.6 (0.8-2.0); ALKALINE PHOSPHATASE 77 IU/L (40-150); ANION GAP 14.1 mmol/L (8-16); BLOOD UREA NITROGEN 10 mg/dL (7-26); BUN/CREATININE RATIO 17 (6-25); CALCIUM 8.7 mg/dL (8.4-10.2); CARBON DIOXIDE 24 mmol/L (22-29); CHLORIDE 108 mmol/L (98-107); EST GLOMERULAR FILTRATION RATE > 60 ML/MIN (60-); GLUCOSE 159 mg/dL (74-118); POTASSIUM 3.1 mmol/L (3.5-5.1); SODIUM 143 mmol/L (136-145)
[2020-06-07] MEDS ORDERED: POTASSIUM CHLORIDE 20 MEQ TAB CR PO ONE (07:50)
[2020-06-07] MEDS ORDERED: GUAIFENESIN 600MG/DEXTROMETHORPHAN 30MG TABSR PO PRN (08:00)
[2020-06-07] MEDS ORDERED: ETOMIDATE 40 MG/ 20ML VIAL IV ONE (08:24)
[2020-06-07] MEDS ORDERED: SUCCINYLCHOLINE CHLORIDE 20 MG/ML 10ML VIAL ONE (08:24)
[2020-06-07] MEDS ORDERED: CHOLECALCIFEROL 400 UNIT TAB PO SCH (09:00)
[2020-06-07] MEDS: FAMOTIDINE 20 MG/2 ML VIAL IV SCH ×2 (09:33→17:46)
[2020-06-07] MEDS: ENOXAPARIN 30 MG/0.3 ML SYR SC SCH ×2 (09:33→21:50)
[2020-06-07] MEDS: ZINC SULFATE 220 MG CAP PO SCH ×2 (10:15→17:46)
[2020-06-07] MEDS: ASCORBIC ACID 500 MG TAB PO SCH ×2 (10:15→17:46)
[2020-06-07] MEDS: CHOLECALCIFEROL 400 UNIT TAB PO SCH (10:15)
[2020-06-07] MEDS: DOCUSATE SODIUM 100 MG CAP PO SCH ×2 (10:15→17:46)
[2020-06-07] MEDS: OXYBUTYNIN CHLORIDE 5 MG TAB PO SCH (10:15)
--- NOTE | 2020-06-07 12:44 | Progress Note ---
DATE: SUBJECTIVE: The patient is seen and evaluated. Available labs and notes reviewed. Discussed with the nurse. Yesterday's Pulmonology note is reviewed. The patient is on 15 L of nasal cannula and non-rebreather. Remains with cough. Comfortable in bed, not much interaction with me. Saturation varies from 95 to 86. PHYSICAL EXAMINATION: VITAL SIGNS: Temperature 97.3, pulse is 100, respiration 20, and blood pressure 128/75. The patient's maximum temperature was 99.1 with a pulse up since yesterday morning in tachycardia of 100 to 120. GENERAL: Comfortable in bed, not much verbal, weak. CV: S1 and S2 with tachycardia at 120. CHEST: Decreased breath sounds. Equal expansion. No acute distress. ABDOMEN: Soft. Positive bowel sounds. HEENT: Moist. No pallor. EXTREMITIES: Weak. LABORATORY STUDIES: White count 24.7, hemoglobin 13.1, and platelets 459. Sodium 143, potassium 3.1, and creatinine 0.6. Serology; coronavirus PCR positive on 06/03. MICROBIOLOGY: Blood culture, coag-negative staph. Urine culture, ESBL E. coli. RADIOLOGY: The patient is status post right upper extremity PICC line placement. ASSESSMENT AND PLAN: 1. COVID-19 and viral pneumonia. 2. Extended-spectrum beta-lactamases urinary tract infection. 3. Acute respiratory failure. 4. Electrolyte abnormalities. 5. Tachycardia. 6. Leukocytosis. 7. Electrolyte abnormalities. 8. The patient is on meropenem and DNR. Please refer to chart for more information. Overall guarded prognosis. Recheck CBC for tomorrow. Potassium supplements per others. Dictated by Reilly Stephenson PA-C (Al) Don Ugarte MD /MODL /[id number]
[2020-06-07] MEDS: VANCOMYCIN 1GM/NS 250 ML 250 ML IV SCH (14:10)
--- NOTE | 2020-06-07 14:50 | Progress Note ---
DATE: SUBJECTIVE: The patient is having more desaturations. Her oxygen level is in the 80s, despite oxygen at 15 L. PHYSICAL EXAMINATION: VITAL SIGNS: The blood pressure is 128/75 and the saturation is 86%. Pulse is 100. HEENT: Shows no facial swelling or erythema. CARDIAC: Reveals regular rate and rhythm with normal S1 and S2. LUNGS: Auscultation of lungs reveals rhonchorous breath sounds bilaterally. There is no wheezing. ABDOMEN: Soft and nontender. There is no rebound or guarding. EXTREMITIES: Shows no leg edema or calf tenderness. There is no cyanosis or clubbing. SKIN: Shows no rashes. NEUROLOGICAL: Shows no focal abnormalities. LABORATORY DATA: White blood cell count is 24.7 and the hemoglobin is 13.1. The platelet count is 459. The BUN to creatinine ratio is normal. The potassium is 3.1. IMPRESSION: 1. Acute respiratory failure. 2. Viral pneumonia and COVID-19 infection. 3. Organic brain syndrome. 4. Gastroesophageal reflux. PLAN: 1. Continue current antibiotics. 2. Continue dexamethasone. 3. Continue Lovenox. 4. Poor prognosis. 5. Palliative care. Anthony Pabon MD LM/MODL /[id number]
--- NOTE | 2020-06-07 18:09 | NUR ---
PATIENT OFTEN REMOVES HER O2 NC AND NRBM. SHE ALSO REMOVES HER O2 SENSOR FROM HER FINGER. CHECKED ON OFTEN AND O2 REPLACED NEEDED. PATIENT REFUSES TO EAT. ILEOSTOMY AND NUÑEZ FUNCTIONING CORRECTLY WITHOUT PROBLEM. ALLEVYN "ANGLES" PLACED TO BOTH HEELS AND A COCCYX ONE ALSO APPLIED , REPOSITIONED , IVEN APPLE JUICE AND WATER OFTEN DURING SHIFT . TOOK MEDS CRUSHED IN APPLE SAUCE. MOUTH CARE GIVEN SEVERAL TIMES DURING SHIFT SPOKE WITH AMADO CALHOUN AND GR. SON WHO LIVES NEAR BY AND HE SAID HE PLANS TO COME TO HER WINDOW AND SEE IN THE AM HE SPOKE WITH HER ON THE PHONE. PATIENT SON KELTON AND HIS WILLIAMS LEAVITT CALLED TO CHECK ON HER.
[2020-06-07] MEDS: ATORVASTATIN 10 MG TAB PO SCH (21:50)
--- NOTE | 2020-06-07 21:50 | NUR ---
PATIENT RESTING IN BED, NO SIGNS OF DISTRESS NOTED. NASAL CANNULA AND NON REBREATHER MASK INTACT, O2 PATENT AND FLOWING. IV ANTIBIOTICS ARE RUNNING AT ORDERED RATE. BED IS IN LOWEST POSITION, BOTH SIDE RAILS ARE UP, CALL LIGHT IS WITHIN EASY REACH, WILL CONTINUE TO MONITOR.
--- NOTE | 2020-06-07 23:18 | NUR ---
UPON ENTERING PATIENT'S ROOM, SHE HAD TAKEN OFF REBREATHER MASK AND NASAL CANNULA. O2 SAT WAS DOWN TO THE 60'S AND PATIENT BEGAN TO MOAN. NASAL CANNULA AND REBREATHER MASK WERE REAPPLIED AND PATIENT WAS REPOSITIONED. O2 SAT IS BACK UP TO PATIENTS NORMAL RANGE AND PATIENT NOW RESTING. CONTINUING TO MONITOR.
[2020-06-08] VITALS (9 sets, daily range): BP systolic 64–127; BP diastolic 45–64
--- NOTE | 2020-06-08 02:15 | NUR ---
PATIENT CONTINUED TO DESAT INTO THE 60'S ON 15 LITERS OF O2. PLACED CALL TO FAMILY TO UPDATE ON PATIENTS SITUATION AND THE GRANDSON WHO IS POWER OF QUARTER DOPER DECIDED THAT HE WOULD LIKE TO HAVE HER INTUBATED. INFORMING AND RESAW MACHINE OPERATOR.
--- NOTE | 2020-06-08 02:46 | NUR ---
Call placed to Dr. Pabon regarding pt family change of mind to have pt intubated. Call placed to Leslie to inform as well. Rapid response called. CAMPUS SAFETY OFFICER in room at this time.
[2020-06-08] MEDS ORDERED: MIDAZOLAM HCL 50 MG in SODIUM CHLORIDE 0.9% 100 ML 90 ML IV PRN (03:15)
[2020-06-08] MEDS ORDERED: MIDAZOLAM HCL 5MG/ML 10ML VIAL 100 ML IV ONE (03:47)
--- NOTE | 2020-06-08 03:50 | NUR ---
PATIENT HAS BEEN SUCCESSFULLY INTUBATED AND TRANSFERRED TO ICU. AWAITING NEW PATIENT.
--- NOTE | 2020-06-08 04:02 | Diagnostic Imaging Report ---
Examination: Single AP view of the chest. COMPARISON: Portable chest 06/06/2020 INDICATION: Post intubation IMPRESSION: 1. Lines and Tubes: Interval placement of endotracheal tube which has its distal tip projecting in the right mainstem bronchus. Supporting IV line is unchanged. 2. No interval change in diffuse bilateral interstitial alveolar opacities consistent with multifocal pneumonia. 3. Cardiomediastinal silhouette is normal. 4. No acute bony abnormalities. 5. Findings discussed with Jose De Jesus in the IMCU 06/08/2020 at 0358 hr Signed by: Dr. Rafael Valenzuela M.D. on 06/08/2020 3:58 AM
--- NOTE | 2020-06-08 04:55 | Diagnostic Imaging Report ---
Examination: Single AP view of the chest. COMPARISON: Portable chest 06/08/2020 INDICATION: ET tube adjustment IMPRESSION: Exam limited by patient rotation. 1. Lines and Tubes: Endotracheal tube now has distal tip projecting approximately 2.2 cm above the isela. Interval placement of enteric tube, which is seen below the left hemidiaphragm, however, the tip is not visualized. Stable right-sided central line. 2. No interval change in diffuse bilateral interstitial and alveolar opacities consistent with multifocal pneumonia. Signed by: Dr. Rafael Valenzuela M.D. on 06/08/2020 4:51 AM
--- NOTE | 2020-06-08 05:55 | Diagnostic Imaging Report ---
Exam: Limited abdominal film Clinical History: NG tube placement Comparison: None. DISCUSSION: See impression. IMPRESSION: 1. Enteric tube has distal tip projecting near the GE junction. Further advancement is recommended. 2. Visualized abdomen shows no air filled, dilated loops of bowel. The staff physician below has personally reviewed this exam on the date of dictation. Signed by: Dr. Rafael Valenzuela M.D. on 06/08/2020 5:52 AM
[2020-06-08] MEDS: VANCOMYCIN 1GM/NS 250 ML 250 ML IV SCH ×3 (06:00→17:51)
[2020-06-08] MEDS ORDERED: ALTEPLASE RECOMBINANT 2 MG/2 ML VIAL IV PRN (06:15)
[2020-06-08 06:27] LABS: BASOPHILS # (AUTO) 0.1 (0.0-0.1); BASOPHILS % 0.3 % (0.0-1.0); HEMATOCRIT 38.8 % (34.2-44.1); HEMOGLOBIN 12.5 g/dL (12.0-16.0); LYMPHOCYTES # (AUTO) 1.1 (1.0-3.2); LYMPHOCYTES % 3.4 % (18.0-39.1); MEAN CORPUSCULAR HEMOGLOBIN 29.8 pg (28-32); MEAN CORPUSCULAR HGB CONC 32.2 g/dL (31-35); MEAN CORPUSCULAR VOLUME 92.4 fL (81-99); MONOCYTES # (AUTO) 5.1 (0.2-0.8); MONOCYTES % 15.8 % (4.4-11.3); NEUTROPHILS # (AUTO) 24.5 (2.1-6.9); NEUTROPHILS % 76.1 % (38.7-80.0); PLATELET COUNT 306 x10e3/uL (140-360); RED CELL DISTRIBUTION WIDTH 15.5 % (11.7-14.4)
[2020-06-08] MEDS ORDERED: ALTEPLASE RECOMBINANT 2 MG/2 ML VIAL IV ONE (06:30)
[2020-06-08 06:59] LABS: ALANINE AMINOTRANSFERASE 24 IU/L (0-55); ALBUMIN 2.2 g/dL (3.5-5.0); ALBUMIN/GLOBULIN RATIO 0.6 (0.8-2.0); ALKALINE PHOSPHATASE 84 IU/L (40-150); ANION GAP 12.8 mmol/L (8-16); BLOOD UREA NITROGEN 20 mg/dL (7-26); BUN/CREATININE RATIO 23 (6-25); CALCIUM 7.8 mg/dL (8.4-10.2); CARBON DIOXIDE 22 mmol/L (22-29); CHLORIDE 114 mmol/L (98-107); CREATININE, SERUM 0.87 mg/dL (0.57-1.11); EST GLOMERULAR FILTRATION RATE > 60 ML/MIN (60-); GLUCOSE 136 mg/dL (74-118); POTASSIUM 3.8 mmol/L (3.5-5.1); SODIUM 145 mmol/L (136-145)
[2020-06-08] MEDS: DEXAMETHASONE SOD PHOS INJ 4 MG/ML VIAL IV SCH ×2 (07:19→16:17)
[2020-06-08] MEDS: MEROPENEM 500MG/ NS 50ML 50 ML IV SCH ×3 (07:19→17:51)
[2020-06-08] MEDS: LEVOTHYROXINE SODIUM 50 MCG TAB PO SCH ×2 (07:19→16:17)
[2020-06-08] MEDS ORDERED: SODIUM CHLORIDE 0.9% 500ML 500 ML IV SCH (07:25)
--- NOTE | 2020-06-08 07:33 | History and Physical ---
PRIMARY CARE PHYSICIAN: Isa Shearer MD CONSULTING PHYSICIANS: 1. Anthony Pabon MD. 2. Don Ugarte MD. CHIEF COMPLAINT: Shortness of breath. HISTORY OF PRESENT ILLNESS: The patient is an 85-year-old female from [place] [facility], who was sent for shortness of breath with oxygen saturations in the 70s. The patient arrived on a non-rebreather mask at 15 L/minute with oxygen saturations in the 70s on room air per EMS. In the emergency department, the patient was put on Vapotherm. Given Rocephin and azithromycin and Decadron. She is currently seen in the coronavirus unit, bed #181. PAST MEDICAL HISTORY: Hypertension, atrial fibrillation, hypothyroidism, anemia, anxiety, gastroesophageal reflux disease, hyperlipidemia, dementia, insomnia, and morbid obesity. FAMILY HISTORY: Noncontributory. Unknown. The patient has underlying dementia. SOCIAL HISTORY: Noncontributory. The patient has underlying dementia. ALLERGIES: NO KNOWN ALLERGIES. MEDICATIONS: Reported medications at the [facility] include gabapentin, oxybutynin, potassium chloride, atorvastatin, levothyroxine, alprazolam, pantoprazole, DuoNeb, furosemide, pregabalin, and zolpidem tartrate. REVIEW OF SYSTEMS: The patient is generally, minimally communicative, has underlying dementia, is confused. She is removing her oxygen, pulling it off after it is reapplied. PHYSICAL EXAMINATION: VITAL SIGNS: Temperature 98.0, heart rate 85, blood pressure 130/63, respirations 18, and oxygen saturation . Height 5 feet 5 inches. Weight 226 pounds. BMI 37.6. GENERAL: Supine, awake, confused. LUNGS: Generally clear with elevated work of breathing. RN is attempting to apply 15 L/minute high-flow nasal cannula along with a non-rebreather mask. HEENT: EOMI. NECK: Supple. CARDIOVASCULAR: Regular rate and rhythm. No murmur. ABDOMEN: Bowel sounds positive. Soft. She has a right lower quadrant colostomy. She is obese. EXTREMITIES: Without pitting edema. No clubbing, cyanosis, or marked swelling. She is tender bilaterally at the lower extremities to gentle palpation. NEUROLOGICAL: Confused. GCS 14, eyes 4, verbal 4, motor 6. INTEGUMENTARY: Very thin skin, both legs. CURRENT MEDICATIONS: Include azithromycin, Rocephin, p.r.n. Tylenol, vitamin C, levothyroxine, alprazolam, p.r.n. Zofran, cholecalciferol, zinc sulfate, Colace, atorvastatin, Pepcid, metoprolol tartrate, oxybutynin, p.r.n. MiraLAX, dexamethasone, Lovenox, and albuterol nebs. LABORATORY DATA: On 06/03, WBC is 13.5, hemoglobin 12.4, hematocrit 36.3, platelets 205. PT 14.4, INR 1.05, PTT 40.2. Sodium 133, potassium 4.2, chloride 99, CO2 of 26, anion gap 12.2, BUN 8 and creatinine 0.63, estimated GFR greater than 60. Glucose 121. Lactic acid 1.3, calcium 8.6, total bilirubin 0.6, AST 43, ALT 41, alkaline phosphatase 80. Creatine kinase 15, CK-MB 0.5, troponin I 0.039. B-type natriuretic peptide 60. Total protein 6.6, albumin , PT 14.4, INR 1.05, PTT 40.2. Urinalysis with 2+ protein, trace amount of ketones, large amount of blood, positive for nitrites, small amount of leukocyte esterase. Serology for Coronavirus PCR detected on 06/03. Blood cultures x2 and urine culture are pending. Today WBC 13.39, sodium 135, BUN 12 and creatinine 0.56. The estimated GFR greater than 60. AST 35. Total protein 6.4, albumin 2.1, phosphorus 2, magnesium 2.3. Triglycerides 111, cholesterol 124, LDL 75, HDL 27. Creatine kinase 22, CK-MB 1.2, troponin I 0.017. Hemoglobin A1c 5.3%. Final creatine kinase 26. CK-MB 1.6, troponin I 0.012. IMAGING: Chest x-ray on 06/03, showed scattered ground-glass and airspace opacities, which may reflect pneumonia. Telemetry, normal sinus rhythm with a heart rate of 76. ASSESSMENT AND PLAN: 1. Acute respiratory failure. Supplemental oxygen. The high-flow nasal cannula and non-rebreather mask. Attempt to avoid conversion to Vapotherm and transferred to ICU, but this may be required as the patient is confused and keeps removing her oxygen. 2. Viral community-acquired pneumonia due to COVID-19, present on admission. Continue azithromycin, Rocephin, zinc sulfate, vitamin C, cholecalciferol, Lovenox, dexamethasone, albuterol inhaler. 3. Severe sepsis with acute respiratory failure, present on admission. WBC 13.3. Continue aforementioned antibiotics. Infectious Disease following. 4. Organic brain syndrome with dementia. Supportive care. 5. Controlled hypertension. Blood pressure 130/63, monitor. 6. Hypothyroidism. Continue levothyroxine 50 mcg daily. 7. Mild acute hyponatremia. Sodium is improved to 135. 8. Transaminitis. AST has improved to 35. 9. Probable acute urinary tract infection, present on admission. Urinalysis positive. Await final urine culture results. 10. Gastroesophageal reflux disease/prophylaxis. Pepcid. Other prophylaxis Lovenox. H and P, billing code [id number]. Time spent 60 minutes. I called and spoke with the patient's family, Ludin Thomas, the patient's son and his . They both agree that the patient should be made DNAR and orders entered into the computer. Case was discussed with Dr. Resendez as well as Dr. Pabon with Pulmonology and they agree with DNR status. Dictated by Dennis Guo NP Shawn Resendez MD HWP/EVELIOL /[id number]
[2020-06-08] MEDS ORDERED: NOREPINEPHRINE 8 MG/D5W 250 ML 250 ML ONE (08:11)
[2020-06-08 09:58] LABS: ABG HCO3 22 mmol/L (22-26); ABG PCO2 42 mmHg (35-45); ABG PH 7.34 (7.35-7.45); ABG PO2 209 mmHg (80-105)
[2020-06-08] MEDS: SODIUM CHLORIDE 0.9% 250ML IRRIG IR SCH ×4 (11:00→19:00)
[2020-06-08 11:51] LABS: BAND NEUTROPHILS % (MANUAL) 5 %; LYMPHOCYTES % (MANUAL) 2 % (19-48); MONOCYTES % (MANUAL) 13 % (3.4-9.0); NEUTROPHILS % (MANUAL) 80 % (40-74)
[2020-06-08] MEDS ORDERED: MIDAZOLAM HCL 5MG/ML 10ML VIAL 100 ML IV PRN (12:00)
--- NOTE | 2020-06-08 12:30 | NUR ---
WENT TO NURSES STATION AND WAS LOOKING FOR THE DOCUMENTED POA, WHILE THERE WILLIAMS SAM THE DAUGHTER IN LAW CALLED. I SPOKE WITH HER AND EXPLAINED THE NECESSITY FOR 1 RETAIL FIELD SUPERVISOR, DUE TO THE DIFFERING POINTS OF VIEW FOR THE PLAN OF CARE. SHE BEGAN TELLING ME SHE WANTS THE PT TO BE EXTUBATED AND LET HER CALL TO SAY GOOD BYE TO HIS MOTHER. I EXPLAINED THAT IF THE FAMILY WANTS BETH HA) TO BE THE PRIMARY HE NEEDS TO BE THE ONE THAT HAS THE CONVERSATION WITH THE DOCTOR, SHE STATED SHE UNDERSTOOD AND WILL CALL AND HAVE THE CONVERSATION WITH [facility], ADVISED THAT PALLIATIVE NEWSPAPER REPORTER WILL BE CALLING [facility] THEN THE DOCTOR WOULD GO FROM THAT ADVISE.
--- NOTE | 2020-06-08 12:37 | NUR ---
BETH HA) NUMBER IS [phone]
[2020-06-08] MEDS: FAMOTIDINE 20 MG/2 ML VIAL IV SCH ×2 (16:16→16:18)
[2020-06-08] MEDS: DOCUSATE SODIUM 100 MG CAP PO SCH ×2 (16:16→16:18)
[2020-06-08] MEDS: ASCORBIC ACID 500 MG TAB PO SCH ×2 (16:17→16:18)
[2020-06-08] MEDS: CHOLECALCIFEROL 400 UNIT TAB PO SCH (16:17)
[2020-06-08] MEDS: OXYBUTYNIN CHLORIDE 5 MG TAB PO SCH (16:17)
[2020-06-08] MEDS: ZINC SULFATE 220 MG CAP PO SCH ×2 (16:17→16:18)
[2020-06-08] MEDS: ENOXAPARIN 30 MG/0.3 ML SYR SC SCH ×2 (16:17→17:51)
[2020-06-08] MEDS: ATORVASTATIN 10 MG TAB PO SCH (16:17)
[2020-06-08] MEDS ORDERED: MORPHINE SULFATE 2 MG/ML SYR 1ML IV PRN (17:45)
[2020-06-08] MEDS ORDERED: LORAZEPAM INJ 2 MG/ML VIAL IV PRN (17:45)
--- NOTE | 2020-06-08 17:47 | Progress Note ---
DATE: SUBJECTIVE: Ms. Gomez remains in Intensive Care Unit, intubated. PHYSICAL EXAMINATION: GENERAL: She is intubated and sedated. VITAL SIGNS: Stable, afebrile. HEENT: She is not icteric. NECK: Supple. CHEST: Crackles. HEART: S1, S2. ABDOMEN: Soft. IMPRESSION AND PLAN: Respiratory failure, COVID-19, organic brain syndrome. The patient currently in Intensive Care Unit prognosis is extremely poor. I think the patient should be DNR and comfort care. We will follow. MD RENO Natarajan/MODL /[id number]
--- NOTE | 2020-06-08 18:46 | NUR ---
Patient extubated palliatively. Levophed IV and Versed IV stopped per orders prior to extubation. Patients sats remain in 50's-60's Morphine 2mg IV given once due to tachypnea. Respiration rate decreased to 24. Will continue to monitors patient's comfort level and treat according to orders. Patient is a DNR per patient's grandson and patient's son. Addendum: 06/08/20 at 1849 by Litzy Starkey RN Amended: Links added.
--- NOTE | 2020-06-08 22:57 | NUR ---
At 2139, patient was assessed and given morphine and ativan for comfort and pain relief. At 2158, pt was asystole and pronounced by ER physician Dr. Hernandez. Notified life [facility]. Notified Dr. Pabon & ILDA Nelson at 2199. Notified family (Magdalena) @ 2214 and gathered home information. Contacted home. Belongings will be bagged and family will come to hospital in AM to tack picker. Addendum: 06/09/20 at 0042 by Guera Jaeger RN home has arrived to transport patient to the desired home, [facility]. Belongings kept here for family to retrieve in AM. Right hand had a ring on middle finger, all other jewelry was removed and placed in patients belonging bag.
--- NOTE | 2020-06-11 12:59 | Discharge Summary ---
DATE OF : 06/08/2020. ADMISSION DIAGNOSES: Coronavirus disease 2019 pneumonia, acute respiratory failure secondary to hypoxia, present on admission; severe sepsis due to coronavirus disease 2019 pneumonia, present on admission; dementia; hypertension; hypothyroidism; hyponatremia; transaminitis; urinary tract infection, present on admission; gastroesophageal reflux disease. DISCHARGE DIAGNOSES: Coronavirus disease 2019 pneumonia, acute respiratory failure secondary to hypoxia, present on admission; severe sepsis due to coronavirus disease 2019 pneumonia, present on admission; dementia; hypertension; hypothyroidism; hyponatremia; transaminitis; urinary tract infection, present on admission; gastroesophageal reflux disease; hypokalemia; hypocalcemia; extended-spectrum beta-lactamases of the urine, present on admission; rule out bacteremia. HISTORY: Hypertension, AFib, hypothyroidism, anemia, anxiety, GERD, hyperlipidemia, dementia, insomnia. FAMILY HISTORY: Unable to obtain. HOSPITAL COURSE: An 85-year-old female from [place] [facility] [place], was sent for shortness of breath with SpO2 in the 70s. She arrived on nonrebreather at 15 L/minute. In the emergency room, the patient was placed on Vapotherm. She was started on Rocephin, Zithromax, zinc, vitamin C, vitamin D, Lovenox, dexamethasone. ID and Pulmonology were consulted. UA was collected. Chest x-ray showed scattered ground-glass glass and airspace opacities, which may reflect pneumonia. Coronavirus PCR was positive. Urine culture came back positive for ESBL of the urine and blood cultures were contaminated. After a few days of being stable, the patient's condition decline. She was a DNR, but when the nurse called the family to let them know that she was not doing very well. One of the family members who was not the POA changed the code status, so a rapid was called and the patient was intubated. The following day after speaking with the POA, he stated that the patient would not want to be intubated and ordered for us to terminally extubate. The patient's time of was 2158 on 06/08/2020. Dictated by Leslie Hughes NP Shawn Resendez MD ABHI/MODL /[id number]
--- NOTE | 2020-06-18 10:58 | NUR ---
Late entry: restraint log completed on P drive
== END 2020-06-08 21:59 | disposition expired | DRG 871 ==
LOC: ER 10:33 → ERHOLD 11:12 → IMCU 19:09 → ICU 06-08 04:02
PROVIDERS: ADMIT Internal Medicine; ATTEND Internal Medicine
PROC: 02HV33Z Insertion of Infusion Device into Superior Vena Cava, Percutaneous Approach (ICD-10-PCS; 2020-06-06)
PROC: 5A1935Z Respiratory Ventilation, Less than 24 Consecutive Hours (ICD-10-PCS; principal; 2020-06-08)
PROC: 0BH17EZ Insertion of Endotracheal Airway into Trachea, Via Natural or Artificial Opening (ICD-10-PCS; 2020-06-08)
DX: A41.9 Sepsis, unspecified organism (principal); U07.1 COVID-19; J12.9 Viral pneumonia, unspecified; J96.00 Acute respiratory failure, unspecified whether with hypoxia or hypercapnia; G93.41 Metabolic encephalopathy; E87.1 Hypo-osmolality and hyponatremia; N39.0 Urinary tract infection, site not specified; Z16.12 Extended spectrum beta lactamase (ESBL) resistance; K21.9 Gastro-esophageal reflux disease without esophagitis; Z66 Do not resuscitate; F09 Unspecified mental disorder due to known physiological condition; E83.39 Other disorders of phosphorus metabolism; R40.4 Transient alteration of awareness; E03.9 Hypothyroidism, unspecified; G89.29 Other chronic pain; F03.90 Unspecified dementia, unspecified severity, without behavioral disturbance, psychotic disturbance, mood disturbance, and anxiety; E87.6 Hypokalemia; B96.20 Unspecified Escherichia coli [E. coli] as the cause of diseases classified elsewhere; E87.8 Other disorders of electrolyte and fluid balance, not elsewhere classified; R65.20 Severe sepsis without septic shock; G47.00 Insomnia, unspecified
CPT/HCPCS: 36415; 36569; 36600; 51700; 71045; 74018; 80048; 80053; 80061; 81001; 82550; 82553; 82805; 83036; 83605; 83735; 83880; 84100; 84443; 84484; 85025; 85610; 85730; 87040; 87071; 87086; 87186; 87205; 93005; 94002; 94003; 94760; 96360; 99285; J0330; J0456; J0696; J1100; J1650; J2060; J2250; J2270; J2997; J3370; J7040; J7050; U0002